=== PATIENT | female | born 1975 | race Caucasian/White ===

== ENCOUNTER 2023-12-22 19:44 | Outpatient (CLI) | payer BC ==
--- NOTE | 2023-12-27 23:47 | P.PCN ---
Date of Procedure: 12/22/23 Operative Findings: CPAP titration report Date of service is 12/22/2023 History This is a 48-year-old female patient with symptomatic ROSANNA with an AHI of 13.9 based on a home sleep study 07/26/2019. The patient has failed CPAP therapy due to poor tolerability. She stated that she was unable to breathe through the machine and the treatment made her very uncomfortable. She is currently symptomatic and her [place] score is 19. She is interested in treatment regarding obstructive sleep apnea. She has an overbite with a Mallampati class IV. She has undergone previous tonsillectomy and she has micrognathia. Technical description The patient was studied using a standard complex polysomnography protocol that included recording of the 2 EKG, Central, occipital and frontal EEG, right and left outer canthus EOG, submental EMG, right and left anterior tibialis EMG, respiratory airflow by thermocouple and or pressure/flow transducer, respiratory efforts by abdominal and thoracic PVDF belts, oxygen saturation by cable oximetry. Position by observation synchronized the PSG. Stepwise CPAP titration was done to eliminate all obstructive respiratory events. Equipment used: [employer]. Pertinent physical findings The patient has a height of 5 feet and 5 inches and a weight of 135 pounds with a body mass index of 22.5 Sleep architecture Total time in bed was 359.5 minutes. The total sleep time was 304.5 minutes. The wake after sleep onset time was 19 minutes. Latency to sleep was 35.5 minutes. Related to REM sleep was 75 minutes. The sleep architecture was characterized by 2.6% stage I, 72.2% stage II, 6.4% stage III, 90.7% REM sleep. The total arousal index was 3.2 CPAP titration summary The patient was started on CPAP therapy initially at a pressure of 6 cm of water and gradually the pressure was increased to achieve the maximum CPAP pressure of 7 cm of water. I carefully reviewed CPAP titration taken, the patient sleep stage and body position. Noted oxygen was also added to eliminate obstructive respiratory events. All sleep stages were encountered including REM sleep. The patient was able to tolerate the treatment without any major desaturations at various sleep stages Sleep continuity summary A total of 16 arousals were noted with an index of 3.2 and the respiratory arousal index was 0.2 Periodic limb movement summary The patient had a total of 45 periodic limb movement activity with an index of 8.9. No arousals related to periodic limb movements Cardiac summary Average heart rate was 61 with a minimum heart rate of 58 and a maximum heart rate of 68 Assessment Obstructive sleep apnea, moderate severity with an AHI of 13.9. The patient has failed a trial of CPAP therapy in the past and the patient presents for reevaluation. This was a successful CPAP titration. Fibromyalgia Chronic anxiety Plan Initiate CPAP therapy at a pressure of 7 cm of water. Will hold off oxygen therapy at this point in time and assess patient's clinical response to CPAP therapy. Noted all sleep stages were encountered. Will start the patient on CPAP utilizing a medium size AirFit F20 fullface mask. Will make further adjustments of the mask interface based on the patient's overall clinical response to treatment. Will consider alternative treatments if the patient fails CPAP therapy.
== END 2023-12-23 03:35 | disposition home or self-care (01) ==
LOC: 3 N SLEEP 19:44
PROVIDERS: ATTEND Internal Medicine Critical Care Medicine
DX: G47.33 Obstructive sleep apnea (adult) (pediatric) (principal); F41.9 Anxiety disorder, unspecified; M79.7 Fibromyalgia
CPT/HCPCS: 95811